=== PATIENT | female | born 1960 | race Caucasian/White ===

== ENCOUNTER → 2018-10-07 17:56 | Outpatient (CLI) | payer OTHER, SELFPAY ==
--- NOTE | 2018-10-07 | DI.RAD.S_ITS ---
PROCEDURE: XR LUMBAR SPINE 2-3V INDICATIONS: DISC DEGENERATION, DORSALGIA TECHNIQUE: 3 views of the lumbar spine were acquired. COMPARISON: [facility]trasound, US, US PELVIC COMPLETE WITH TRANSVAGINAL, 03/23/2018, 11:07. FINDINGS: Bones: 5 [id number] vertebrae are present. There is normal bony alignment. No vertebral body compression fractures. No suspicious bony lesions. Only a slight degree of degenerative disc disease is seen as indicated by slight disc height reduction at L5-S1. Soft tissues: Overlying bowel gas pattern is normal. No suspicious soft tissue calcifications. IMPRESSION: Minimal degenerative disc disease at L5-S1, without suspected spinal or foraminal stenosis. Incidental note is made of midline presumed uterine calcifications given the clinical history of calcification seen on prior pelvic ultrasound in March of 2018 involving the uterus and fibroids. Dictated by: Adolfo Thompson M.D. on 10/08/2018 at 9:11 Approved by: Adolfo Thompson M.D. on 10/08/2018 at 9:13
--- NOTE | 2018-10-07 | DI.RAD.S_ITS ---
PROCEDURE: XR THORACIC SPINE 3V INDICATIONS: DISC DEGENERATION, DORSALGIA TECHNIQUE: 3 views of the thoracic spine were acquired. COMPARISON: None. FINDINGS: Bones: No fractures or dislocations. No suspicious bony lesions. 12 pairs of ribs are noted, and appear intact where visualized. Soft tissues: No paravertebral stripe thickening. IMPRESSION: Minimal degenerative disc disease along the thoracic spine, no fracture or subluxation found. Dictated by: Adolfo Thompson M.D. on 10/08/2018 at 9:46 Approved by: Adolfo Thompson M.D. on 10/08/2018 at 9:49
--- NOTE | 2018-10-07 | DI.RAD.S_ITS ---
PROCEDURE: XR CERVICAL SPINE 4V OR 5V INDICATIONS: DISC DEGENERATION, DORSALGIA TECHNIQUE: 5 views of the cervical spine acquired. COMPARISON: None. FINDINGS: Bones: No fractures or dislocations to the T1 level. Oblique images demonstrate no bony foraminal stenoses. There is degenerative disc disease that is moderately severe at C4-5, and C5-6. The oblique views show a mild degree of foraminal stenosis at C4-5 greater on the left than the right. Soft tissues: No prevertebral soft tissue swelling. IMPRESSION: C4-5 and C5-6 degenerative disc disease, moderately severe, with mild foraminal stenosis greater on the left than the right C4-5. Dictated by: Adolfo Thompson M.D. on 10/08/2018 at 9:10 Approved by: Adolfo Thompson M.D. on 10/08/2018 at 9:11
== END ==
PROVIDERS: PCP Physician Assistant; Visit Provider Physician Assistant
DX: M54.89 Other dorsalgia (principal); M50.321 Other cervical disc degeneration at C4-C5 level; M48.02 Spinal stenosis, cervical region
CPT/HCPCS: 72050; 72072; 72100

== ENCOUNTER 2022-09-25 11:46 | Day surgery (SDC) | payer OTHER, SELFPAY ==
[2022-09-25 11:53] VITALS: BP 132/82; PULSE 86; RESP 21; TEMP 36.8; O2SAT 97; BMI 28.1
[2022-09-25] MEDS: LACTATED RINGERS 1,000 ML 42 ML IV (12:05)
--- NOTE | 2022-09-25 13:12 | PM.HP.1 ---
History of Present Illness History of Present Illness Chief complaint: Screening Colonoscopy Narrative: Ms. Calvillo presents today for screening colonoscopy. Her last colonoscopy was 10 years ago into her knowledge was normal. The prep went fine today. She has not had any concerning symptoms bleeding or changes in bowel habits. She thinks she might have a maternal grandfather who got colon cancer but was never screened in his late 80s and so she does not consider herself to have a real family history.. PFSH Medical History (Updated 09/25/22 @ 13:14 by Joann Mcgee MD) Normal hysteroscopy Surgical History (Updated 09/25/22 @ 12:13 by Chelsie Heath RN) History of appendectomy Social History household members: spouse Smoking Status: Never smoker alcohol intake: never Meds Home Medications and Allergies Allergies Allergy/AdvReac Type Severity Reaction Status Date / Time ibuprofen Allergy Mild Rash Verified 09/25/22 12:09 Sulfa (Sulfonamide Allergy Mild Swelling Verified 09/25/22 12:09 Antibiotics) of Lip/Tongue/Throat Exam Vital Signs (past 8 hours): - 09/25/22 11:53 Temperature 98.3 F Pulse Rate 86 Respiratory Rate 21 Blood Pressure 132/82 Pulse Oximetry 97 Oxygen Delivery Method Room Air Oxygen Delivery Method Room Air Const General: cooperative, healthy appearing and comfortable Orientation: alert, awake and oriented x3 HENMT Head: normal to inspection Resp Effort & Inspection: normal respiratory effort and able to speak in complete sentences Cardio Pulses: radial pulses present GI Palpation: soft and No tender Assessment & Plan Assessment and plan (1) Screening for colon cancer: Status: Acute Assessment & Plan narrative: Presents today for screening colonoscopy I discussed the risks benefits and alternatives including but not limited to perforation of the colon and an incomplete exam she fully understands these risks and would like to proceed.
[2022-09-25 13:48] VITALS: BP 113/82; PULSE 82; RESP 19; TEMP 36.1; O2SAT 97
[2022-09-25 13:53] VITALS: BP 112/76; PULSE 72; RESP 19; O2SAT 96
--- NOTE | 2022-09-25 13:57 | PM.OP.COLON ---
Operative Date/Time/Diagnoses Date of procedure: 09/25/22 Time of procedure: 13:57 Pre-op diagnosis: Screening for colon cancer Post-op diagnosis: same Procedure & Clinicians Study performed: Colonoscopy, average risk Same procedure as scheduled: Yes Indications: Screening for colon cancer Surgeon: Joann Mcgee Procedure Notes Procedure in detail: Patient was taken to the endoscopy suite and placed in a left lateral decubitus position. A time-out was performed. With the help of an anesthesiologist conscious sedation was performed and monitored. A digital rectal exam was performed and there were some external hemorrhoidal type skin tags of visible but no masses or strictures on digital exam. The colonoscope was then introduced into the anal canal and advanced through the rectum and the rest of the colon to the cecum. A photograph was obtained of the appendiceal orifice. The colonoscope was then withdrawn slowly over the course of 12 minutes. There were scattered diverticula and photographs were obtained. One diverticula on the right side of the colon with the majority being in the sigmoid colon. No polyps were seen and no biopsies were taken. The scope was retroflexed and a photograph obtained of hemorrhoidal piles that appeared normal. Patient tolerated the procedure well and went in good condition postoperative care unit unless there is a change family history or she develops symptoms she may follow up in 10 years for another screening colonoscopy exam Findings: divertiulosis Complications: none Post-procedure Recommendations: Colonoscopy in 10 years
[2022-09-25 13:58] VITALS: BP 111/80; PULSE 72; RESP 14; TEMP 36.3; O2SAT 98
== END 2022-09-25 14:13 | disposition home or self-care (01) ==
PROVIDERS: PCP Physician Assistant; Referring Provider Surgery; Visit Provider Surgery
PROC: 0DJD8ZZ Inspection of Lower Intestinal Tract, Via Natural or Artificial Opening Endoscopic (ICD-10-PCS; CPT 45378; principal; 2022-09-25 12:45)
DX: Z12.11 Encounter for screening for malignant neoplasm of colon (principal); K64.4 Residual hemorrhoidal skin tags; K57.30 Diverticulosis of large intestine without perforation or abscess without bleeding
CPT/HCPCS: 45378; J2704

== ENCOUNTER → 2024-08-24 08:12 | Outpatient (CLI) | payer OTHER, SELFPAY ==
[2024-08-24 10:23] LABS: Add Manual Diff / Slide Review NO; Basophils Absolute Auto 0 /uL (0-100); Basophils Percent Auto 0.7 % (0-2); Eosinophils Absolute Auto 400 /uL (0-450); Eosinophils Percent Auto 8.4 % (2-4); Hematocrit 39.4 % (36-46); Hemoglobin 13.2 g/dL (12.0-16.0); Lymphocytes Absolute Auto 1600 /uL (1100-4500); Lymphocytes Percent Auto 32.7 % (25-40); Mean Corpuscular HGB Conc 33.6 % (30-36); Mean Corpuscular Hemoglobin 30.2 PG (26-34); Mean Corpuscular Volume 90.1 fL (80-100); Monocytes Absolute Auto 300 /uL (0-900); Monocytes Percent Auto 6.3 % (3-14); Neutrophils Absolute Auto 2600 /uL (1500-7000); Neutrophils Percent Auto 51.9 % (50-75); Platelet Count 298 X10^3/uL (150-400); Red Blood Cell Count 4.37 X10^6/uL (4.0-5.2); Red Cell Distribution Width 13.4 % (11.6-14.8)
[2024-08-24 11:29] LABS: TSH w/ Reflex to FT4 2.71 uIU/mL (0.47-4.68)
[2024-08-24 13:13] LABS: Alanine Aminotransferase 74 IU/L (<35); Albumin 4.3 g/dL (3.5-5.0); Albumin Globulin Ratio 1.7 (1.0-2.8); Alkaline Phosphatase 159 U/L (38-126); Aspartate Aminotransferase 41 IU/L (14-36); BUN Creatinine Ratio 14.9 (6-22); Bilirubin Total 0.4 mg/dL (0.2-1.3); Blood Urea Nitrogen 15 mg/dL (7-17); Calcium 9.1 mg/dL (8.4-10.2); Carbon Dioxide 27 mmol/L (22-32); Chloride 105 mmol/L (98-107); Cholesterol 216 mg/dL (140-199); Estimated Glomerular Filt Rate > 60 mL/min (>60); Globulin 2.5 g/dL (1.7-4.1); Glucose 83 mg/dL (80-110); HDL Cholesterol 62 mg/dL (40-60); HEMOLYSIS < 15 (0-50); LDL Cholesterol Calculated 134 mg/dL (<100); Potassium 4.6 mmol/L (3.4-5.1); Sodium 139 mmol/L (137-145); Total Protein 6.8 g/dL (6.3-8.2); Triglycerides 98 mg/dL (35-150)
[2024-08-24 13:52] LABS: Ferritin 77 ng/mL (11-264)
[2024-08-25 08:13] LABS: Insulin Level Total 6.6 uIU/mL (2.6-24.9)
== END ==
PROVIDERS: PCP Family Medicine; Referring Provider Family Medicine; Visit Provider Family Medicine
DX: Z79.890 Hormone replacement therapy (principal); E66.811 Obesity, class 1
CPT/HCPCS: 36415; 80053; 80061; 82728; 83525; 84443; 85025